=== PATIENT | female | born 1955 | race Caucasian/White ===

== ENCOUNTER 2022-05-29 17:41 | Emergency (ER) | payer MEDICARE, OTHER, SELFPAY ==
[2022-05-29 17:58] VITALS: BP 149/93; PULSE 96; RESP 18; TEMP 35.9; O2SAT 100
--- NOTE | 2022-05-29 18:12 | ED.EYEPROB ---
HPI - Eye Problem General Chief complaint: Eye Problems Stated complaint: Right Eye Irritation Time Seen by Provider: 05/29/22 18:12 Source: patient, RN notes reviewed and old records reviewed Mode of arrival: ambulatory Limitations: no limitations History of Present Illness HPI Narrative: 66-year-old female presents to [facility] with her sister with complaints of right eye redness and irritation. Had been tearing, crusted over in the morning for the last week and a half. Patient has been using allergy eyes with minimal improvement. Does not wear contact lenses. Normally wears glasses and forgot her glasses to do an eye visual acuity. Related Data Home Medications Medication Instructions Recorded Confirmed aspirin 81 mg tablet,delayed 81 mg PO DAILY 05/29/22 05/29/22 release atorvastatin 40 mg tablet 40 mg PO DAILY 05/29/22 05/29/22 carvedilol 6.25 mg tablet 6.25 mg PO DAILY 05/29/22 05/29/22 cholecalciferol (vitamin D3) 25 25 mcg PO DAILY 05/29/22 05/29/22 mcg (1,000 unit) tablet (Vitamin D3) conj estrogen-medroxyprogesterone 1 tablet PO DAILY 05/29/22 05/29/22 0.45 mg-1.5 mg tablet (Prempro) cyanocobalamin (vitamin B-12) 1,000 mcg PO DAILY 05/29/22 05/29/22 1,000 mcg tablet (Vitamin B-12) levothyroxine 88 mcg tablet 88 mcg PO DAILY 05/29/22 05/29/22 loratadine 10 mg tablet 10 mg PO DAILY 05/29/22 05/29/22 metformin 500 mg tablet mg 05/29/22 Allergies Allergy/AdvReac Type Severity Reaction Status Date / Time No Known Allergies Allergy Verified 05/29/22 18:22 Review of Systems Review of Systems: All systems reviewed & are unremarkable except as noted in HPI and below Constitutional: Constitutional: Reports no additional constitutional complaints, Denies chills and Denies fever(s) Eyes: Eyes: Reports as per HPI ENT: Reports system reviewed and no additional complaints, except as documented Cardiovascular: Cardiovascular: Reports no additional cardiovascular complaints Respiratory: Respiratory: Reports no additional respiratory complaints Gastrointestinal: Gastrointestinal: Reports no additional gastrointestinal complaints Musculoskeletal: Musculoskeletal: Reports no additional musculoskeletal complaints Integumentary/Breasts: Skin/Breast: Reports system reviewed and no additional complaints, except as docu Neurologic: Reports system reviewed and no additional complaints, except as documented Psychiatric: Psychiatric: Reports no additional psychiatric complaints Allergic/Immunologic: Allergic/Immunologic: Reports no additional allergic/immunologic complaints PMFSH Past Medical History Medical History High cholesterol History of high blood pressure Hypothyroidism Comments At the time of my signature, I reviewed and agree with the nursing past medical, surgical, social, and family history. There is no relevant family history pertinent to the patient complaint. Exam Const: General: healthy appearing, no acute distress and alert Nutritional Appearance: well nourished Orientation/consciousness: patient oriented x3 Limitations: no limitations HENMT: Head: normal to inspection Ears: external ears normal Eyes: General: appearance normal, both eyes and all related structures Conjunctivae: conjunctival abnormality right conjunctival injection localized (Right lower lid) and discharge (Clear, crusting noted) Pupils: Equal, round and reactive pupils present Neck: Neck: normal visual inspection, no lymphadenopathy and no meningeal signs Chest: Chest palpation & inspection: normal inspection of the chest Resp: Effort & Inspection: normal respiratory effort and no use of accessory muscles Auscultation: clear to auscultation bilaterally, no crackles, no rales, no rhonchi and no wheezes Cardio: Rate: regular rate Rhythm: regular rhythm Back/Spine/Pelvis: Cervical Spine: normal cervical lordosis Thoracic/Lumbar Spine: thoracic
== END 2022-05-29 18:26 | disposition home or self-care (01) ==
PROVIDERS: Emergency Provider Nurse Practitioner
DX: H10.31 Unspecified acute conjunctivitis, right eye (principal); E78.00 Pure hypercholesterolemia, unspecified; I10 Essential (primary) hypertension; E03.9 Hypothyroidism, unspecified
CPT/HCPCS: 99213; G0463